=== PATIENT | female | born 1995 | race Caucasian/White ===

== ENCOUNTER → 2018-03-17 15:53 | Outpatient (CLI) | payer OTHER, MEDICAID, SELFPAY | PROVIDERS: Visit Provider Otolaryngology Otolaryngology/Facial Plastic Surgery | DX: J02.9 Acute pharyngitis, unspecified (principal) | CPT/HCPCS: 87070 ==

== ENCOUNTER 2018-06-28 15:25 | Emergency (ER) | payer OTHER, MEDICAID, SELFPAY ==
[2018-06-28 15:26] VITALS: BP 126/72; PULSE 100; RESP 18; TEMP 36.7; O2SAT 100; BMI 27.3
--- NOTE | 2018-06-28 15:45 | ED.VISSUMM ---
- ER Visit Summary Date of Service: 06/28/18 Chief Complaint: Abdominal pain History of Present Illness: The patient is a 23 F presenting with right-sided abdominal pain. She states this started 2 days ago. Pain has been intermittent. She has nausea with no vomiting. She has diarrhea. She has dysuria with no hematuria or urinary frequency. She has had subjective fevers. She denies possibility of . She went to urgent care today and was sent to the ED for further evaluation. Physical Examination: Vitals are stable. Patient is afebrile. Alert no acute distress. HEENT exam is unremarkable. Neck is supple. Lungs are clear and equal bilaterally. Heart is regular rate and rhythm. Abdomen is soft mild diffuse tenderness with no rebound or guarding Extremities are unremarkable. Skin is warm and dry. No focal neurologic deficit. Remainder of exam is unremarkable. Emergency Department Course and Treatment: CBC, chemistries unremarkable. Total bili is 1.3. HCG negative. On repeat exam, she has tenderness now more in the right lower quadrant. No guarding or rebound. CT abdomen pelvis is obtained and shows right adnexal cyst. IUD. Small amount of free fluid. Otherwise no acute disease. Urinalysis shows over 100 white blood cells, 10-25 red blood cells. On reevaluation, patient is now resting comfortably. She is given Macrobid and a prescription. She is advised to follow-up with her primary care physician. Advised return to ED for worsening complaints. Disposition: Discharge home Impression: Right ovarian cyst, UTI This note was generated with Shah[employer] P[employer], Broker dictation software. It may contain incorrect words, spelling, and punctuation that were not noted in review of the chart prior to signing ED Disposition - Plan for ED Patient: Chief Complaint: Abd Pain Referrals: Jean-Claude Paredes MD [Primary Care Provider] -
[2018-06-28 16:27] LABS: Absolute Lymphocyte Count 1.98 X10^3/ul (0.83-4.51); Absolute Neutrophil Count 5.8 X10^3/uL (2.0-7.7); Basophil# 0.01 X10^3/uL; Basophil% 0.1 % (0-1); Eosinophils% 1.2 % (0-5); Hematocrit 43.5 % (37-47); Hemoglobin 14.3 g/dl (12.0-15.0); Lymphocyte # 1.98 X10^3/ul (4.0); Lymphocyte % 22.8 % (19-41); Mean Corp Hgb Conc 32.9 g/gl (32-36); Mean Corpuscular Hgb 27.7 pg (27.0-32.0); Mean Corpuscular Volume 84.3 fL (81-99); Mean Platelet Vol. 9.1 fl (6.2-12.0); Monocyte# 0.72 X10^3/uL; Monocyte% 8.3 % (0-10); Neutrophil # 5.84 X10^3/uL (2.7-7.7); Neutrophil % 67.4 % (47-70); Platelet Count 249 K/mm3 (150-450); RBC Distribution Width CV 13.6 % (11.6-14.6); Red Blood Count 5.16 M/mm3 (4.2-5.4); White Blood Count 8.7 K/mm3 (4.4-11.0)
[2018-06-28 16:29] LABS: POSITIVE COUNT NO; POSITIVE DIFFERENTIAL NO; POSITIVE MORPHOLOGY NO
[2018-06-28 16:41] LABS: AST(SGOT) 11 U/L (15-37); Alanine Aminotransfer ALT/SGPT 18 U/L (13-56); Albumin, Serum 3.9 g/dL (3.2-5.0); Alkaline Phosphatase 62 U/L (45-117); Anion Gap 5 (5-15); BUN 9 mg/dL (7-18); BUN/Creat Ratio 11.2 RATIO (10-20); Calcium,Total 8.9 mg/dL (8.5-10.1); Chloride 107 mmol/L (98-107); EST Glomerular Filtration Rate 96 mL/min (>60); Est Glom Filt Rate - Afr Amer 116 mL/min (>60); Estimated Creatinine Clearance 104.14 ml/min; Globulin 4.1 g/dL (2.2-4.2); Glucose 95 mg/dL (74-106); Potassium 3.6 mmol/L (3.5-5.1); Sodium Level 141 mmol/L (136-145)
[2018-06-28 16:49] LABS: Pregnancy, Serum, hCG Quali. NEGATIVE Negative (0-9 Nonpreg)
[2018-06-28 17:05] LABS: Mucous, Urine 0 SEEN /hpf (<or=2+)
[2018-06-28 17:34] LABS: Color, Urine Yellow (Yellow); Glucose, Dipstick Normal (Normal); Ketone-Dipstick 5 mg/dl (Negative); Leukocyte Esterase-Dipstick 500 /ul (Negative); Nitrite-Dipstick Negative (Negative); Occult Blood-Urine 150 /ul (Negative); Protein-Dipstick 30 mg/dl (Negative); Specific Gravity, Urine 1.015 (1.002-1.030); Urine Bilirubin Dipstick Negative (Negative); Urine Clarity Cloudy (Clear); Urine Urobilinogen 1 mg/dl (Normal)
[2018-06-28 17:57] LABS: Bacteria 4+ /hpf (None Seen); Calcium Oxalate Crystals Ur 1+ /hpf (<or=2+); Red Blood Cells-Urine 10-25 SEEN /hpf (0-5); Squamous Epithelial Cells - UA 0-5 SEEN /hpf (5-10); White Blood Cells >100 SEEN /hpf (0-5)
[2018-06-28 17:58] LABS: Amorphous Sediment 2+
[2018-06-28 18:52] VITALS: BP 92/61; PULSE 69; RESP 17; O2SAT 98
--- NOTE | 2018-06-28 20:46 | ED.DEP ---
ED Disposition - Plan for ED Patient: Chief Complaint: Abd Pain Instructions: ED UTI Cystitis Female, ED Cyst Ovarian Prescriptions: Naproxen [Naprosyn] 500 mg PO BID PRN #20 tablet Nitrofurantoin Macrocrystals [Macrobid] 100 mg PO Q12 #14 capsule Referrals: Jean-Claude Paredes MD [Primary Care Provider] -
[2018-06-28] MEDS: Nitrofurantoin Macrocrystals 100 MG Capsule PO (21:06)
[2018-06-28 21:12] VITALS: BP 110/70; PULSE 74; RESP 16; O2SAT 98
== END 2018-06-28 21:13 | disposition home or self-care (01) ==
PROVIDERS: Emergency Provider Emergency Medicine; Family Provider Family Medicine; PCP Family Medicine
DX: N83.201 Unspecified ovarian cyst, right side (principal); N39.0 Urinary tract infection, site not specified; Z97.5 Presence of (intrauterine) contraceptive device; Z72.0 Tobacco use
CPT/HCPCS: 74177; 80053; 81001; 84703; 85025; 99284; Q9967; A4216

== ENCOUNTER 2021-02-15 08:07 | Emergency (ER) | payer OTHER, SELFPAY ==
[2021-02-15 08:08] VITALS: BP 103/24; PULSE 86; RESP 18; TEMP 35.6; O2SAT 100; BMI 23.5
--- NOTE | 2021-02-15 08:28 | US_ITS ---
STUDY: ABDOMINAL ULTRASOUND - RIGHT UPPER QUADRANT REASON FOR VISIT: Female, 26 years old PAIN TECHNIQUE: Ultrasound evaluation of the right upper quadrant was performed with real-time and static meyers-scale imaging. TECHNICAL QUALITY: Adequate. COMPARISON: None. FINDINGS: Liver: The liver measures 17.2 cm. There is normal echogenicity of the liver. The bile ducts are within normal limits. There is hepatic color flow. The direction of portal flow is hepatopetal. There is no demonstrated mass lesion. Gallbladder: Distended gallbladder. The gallbladder wall measures 3 mm. There is a negative sonographic Gatica''s sign. There is no pericholecystic fluid. There is a solitary echogenic gallstone within the gallbladder, along with echogenic sludge. Common Bile Duct (C.B.D.): The common bile duct measures 4 mm. Pancreas: Normal size of the head, body and tail of the pancreas. There is normal echogenicity of the pancreas. There is no demonstrated pancreatic mass or cyst. Right Kidney: Normal size of the right kidney. The right kidney measures 11.5 x 5.2 x 4.6 cm. Normal renal cortex. The right cortex measures 1.6 cm. There is no demonstrated renal mass or cyst. There is no right hydronephrosis. US/Gallbladder IMPRESSION: Cholelithiasis with gallbladder sludge. However, there is no wall thickening, pericholecystic fluid or extrahepatic biliary dilatation. Findings are equivocal for cholecystitis. Consider further evaluation with HIDA study Electronically Signed: Liam Arce MD at 10:06 EDT , Service support ,
[2021-02-15] MEDS: Morphine 4 MG/ML Syringe IV (08:51)
[2021-02-15] MEDS: 0.9% Normal Saline 1,000 ML 125 ML IV (08:51)
[2021-02-15 08:52] LABS: Absolute Lymphocyte Count 1.49 X10^3/uL (0.83-4.51); Absolute Neutrophil Count 6.8 X10^3/uL (2.0-7.7); Basophil# 0.02 X10^3/uL; Basophil% 0.2 % (0-1); Eosinophil# 0.07 X10^3/uL; Eosinophils% 0.8 % (0-5); Hematocrit 41.5 % (37-47); Hemoglobin 13.8 g/dL (12.0-15.0); Lymphocyte # 1.49 X10^3/ul (4.0); Lymphocyte % 16.3 % (19-41); Mean Corp Hgb Conc 33.3 g/dL (32-36); Mean Corpuscular Hgb 28.5 pg (27.0-32.0); Mean Corpuscular Volume 85.7 fL (81-99); Mean Platelet Vol. 8.6 fl (6.2-12.0); Monocyte% 7.7 % (0-10); NRBC Flagged by Analyzer 0 % (0-5); Neutrophil # 6.82 X10^3/uL (2.7-7.7); Neutrophil % 74.7 % (47-70); Platelet Count 257 K/mm3 (150-450); RBC Distribution Width CV 12.7 % (11.6-14.6); Red Blood Count 4.84 M/mm3 (4.2-5.4); White Blood Count 9.1 K/mm3 (4.4-11.0)
[2021-02-15] MEDS: Ketorolac 30 MG/ML Syringe IV (08:52)
[2021-02-15] MEDS: Ondansetron 4 MG/2 ML Vial IV (08:52)
[2021-02-15 09:08] LABS: Internal QC Validated? YES +Cl - CLEAR BKGD
[2021-02-15 09:10] LABS: ALB/GLOB Ratio 1.1 RATIO (0.9-2.4); AST(SGOT) 14 U/L (15-37); Alanine Aminotransfer ALT/SGPT 22 U/L (13-56); Albumin, Serum 3.9 g/dL (3.2-5.0); Alkaline Phosphatase 54 U/L (45-117); Anion Gap 4 (5-15); BUN 9 mg/dL (7-18); BUN/Creat Ratio 14.1 RATIO (10-20); Calcium,Total 8.4 mg/dL (8.5-10.1); Chloride 106 mmol/L (98-107); Creatinine, Serum 0.64 mg/dL (0.55-1.02); EST Glomerular Filtration Rate 122 mL/min (>60); Est Glom Filt Rate - Afr Amer 147 mL/min (>60); Estimated Creatinine Clearance 126.89 ml/min; Globulin 3.4 g/dL (2.2-4.2); Glucose 119 mg/dL (74-106); Lipase 85 U/L (73-393); Potassium 3.6 mmol/L (3.5-5.1); Pregnancy, Serum, hCG Quali. NEGATIVE Negative; Protein, Total 7.3 g/dL (6.4-8.2); Sodium Level 136 mmol/L (136-145)
[2021-02-15 09:22] LABS: Mucous, Urine 0 SEEN /hpf (<or=2+); Red Blood Cells-Urine 0 SEEN /hpf (0-5); White Blood Cells 0 SEEN /hpf (0-5)
[2021-02-15 09:23] LABS: Color, Urine Yellow (Yellow); Glucose, Dipstick Normal (Normal); Ketone-Dipstick 5 mg/dl (Negative); Leukocyte Esterase-Dipstick Negative /ul (Negative); Nitrite-Dipstick Negative (Negative); Occult Blood-Urine Negative /ul (Negative); Protein-Dipstick Negative (Negative); Urine Bilirubin Dipstick Negative (Negative); Urine Clarity Cloudy (Clear); Urine Urobilinogen Normal (Normal)
[2021-02-15 09:30] LABS: Amorphous Sediment 1+; Bacteria 1+ /hpf (None Seen); Squamous Epithelial Cells - UA 0-5 SEEN /hpf (5-10)
--- NOTE | 2021-02-15 09:39 | ED.DCSUM_ITS ---
History of Present Illness Chief Complaint: Abd Pain Informant: Patient - Abdominal Pain/Flank Pain Onset: - - overnight Context: Gradual Onset Timing: Continuous, Waxes and wanes Quality: Aching Location: - - across upper abd like a band, occ radiating into low back area Current Severity: Severe Maximum Severity: Severe Worsened by: Nothing Relieved by: Nothing - Nausea/Vomiting/Emesis GI Symptom: Nausea. Negative for: Vomiting - Diarrhea/Melena/Hematochezia GI Symptom: Negative for: Diarrhea, Melena, Hematochezia Associated Symptoms: Negative for: Dysuria, Frequency, Hematuria, Urgency LMP: unknown - has IUD and doesn't menstuate Narrative: Severe upper abdominal pain that she has had in the past on occasion but not nearly as severe as this, so this is the first time she has had it evaluated by a physician. Nauseated. She denies any pruritus, but does note that on occasion she has noticed that the whites of her eyes have turned yellow, but not today or last night. Last night, pain started between 30 and 60 minutes after eating [place] food. She has had no prior abdominal surgeries. She used to drink alcohol fairly regularly but not anymore. She denies any vomiting, fevers chills, hematochezia, or melena. Recent Illness/Hospitalization: No Past Medical History - Allergies and Home Meds Allergies/Adverse Reactions: Allergies No Known Allergies Allergy (Verified 02/15/21 08:09) Primary Care Physician: Jean-Claude Paredes MD [Primary Care Provider] - Past Medical History: None Smoking Status: Current every day smoker Alcohol: Occasional Drugs: None Review of Systems General: Denies: Chills, Fever, Sweats Eyes: Denies: Visual changes - bilaterally, Diplopia ENT: Denies: Rhinorrhea, Sore throat Cardiovascular: Denies: Chest pain, Palpitations Respiratory: Denies: Dyspnea, Cough, Dyspnea on exertion Gastrointestinal: Reports: Abdominal pain, Nausea. Denies: Vomiting, Diarrhea, Melena, Hematochezia Genitourinary: Denies: Dysuria, Hematuria, Frequency Musculoskeletal: Reports: Back pain. Denies: Neck pain, Swelling, Extremity Pain Skin: Denies: Rash, Wounds Neurological: Denies: Headache, Weakness, Numbness Physical Exam Vital Signs/Narrative: Vital Signs Temp Pulse Resp BP Pulse Ox 02/15/21 08:08 96.1 F L 86 18 103/24 L 100 Inital Vital Signs reviewed: Yes General: Well nourished, Well developed, Acute Distress - Pain Head: Normocephalic, Atraumatic Eyes: Perrl, EOMI ENT: Moist mucous membranes, No rhinorrhea Neck: Supple, Nontender Cardiovascular: Regular rate, Regular rhythm, No murmurs Respiratory: No distress, CTA bilaterally, Chest nontender Abdomen: Soft, Nondistended, Normal bowel sounds, No masses, Tender - Across upper abdomen, Guarding - Voluntary, Gatica's sign. Negative for: Rebound tenderness Back: Nontender, Normal Inspection, CVA tenderness - Diffusely tender, nonlateralizing Extremities: Nontender, No edema. Negative for: Calf Tenderness Skin: Normal color, No rash, No Trauma Neurological: Alert, Oriented x3, Cranial nerves II-XII grossly intact, Normal Strength, Normal Sensation, Normal Gait Psychological: Normal Mood, - - Anxious Diagnostic/Tx/Re-eval Impressions Gallbladder Ultrasound 02/15/21 08:28 IMPRESSION: Cholelithiasis with gallbladder sludge. However, there is no wall thickening, pericholecystic fluid or extrahepatic biliary dilatation. Findings are equivocal for cholecystitis. Consider further evaluation with HIDA study Electronically Signed: Liam Arce MD at 10:06 EDT , Service support , 02/15/21 08:28 Gallbladder [US] Stat Laboratory Results 02/15/21 02/15/21 02/15/21 08:27 08:45 08:45 WBC 9.1 RBC 4.84 Hgb 13.8 Hct 41.5 MCV 85.7 MCH 28.5 MCHC 33.3 RDW Std Deviation 40.0 RDW Coeff of Geetha 12.7 Plt Count 257 MPV 8.6 Immature Gran % (Auto) 0.300 Neut % (Auto) 74.7 H Lymph % (Auto) 16.3 L Kimball % (Auto) 7.7 Eos % (Auto) 0.8 Baso % (Auto) 0.2 Absolute Neuts (auto) 6.8 Absolute Lymphs (auto) 1.49 Nucleated RBC % 0 Sodium 136 Potassium 3.6 Chloride 106 Carbon Dioxide 26.0 Anion Gap 4 L BUN 9 Creatinine 0.64 Estim Creat Clear Calc 126.89 Est GFR (MDRD) Af Amer 147 Est GFR (MDRD) Non-Af 122 BUN/Creatinine Ratio 14.1 Glucose 119 H Calcium 8.4 L Total Bilirubin 1.10 H AST 14 L ALT 22 Alkaline Phosphatase 54 Total Protein 7.3 Albumin 3.9 Globulin 3.4 Albumin/Globulin Ratio 1.1 Lipase 85 Serum , Qual Urine Color Yellow Urine Clarity Cloudy Urine pH 9.0 Ur Specific Mcfarland 1.020 Urine Protein Negative Urine Glucose (UA) Normal Urine Ketones 5 H Urine Occult Blood Negative Urine Nitrite Negative Urine Bilirubin Negative Urine Urobilinogen Normal Ur Leukocyte Esterase Negative Urine RBC 0 SEEN Urine WBC 0 SEEN Ur Squamous Epith Cells 0-5 SEEN Amorphous Sediment 1+ Urine Bacteria 1+ Urine Mucus 0 SEEN 02/15/21 08:45 WBC RBC Hgb Hct MCV MCH MCHC RDW Std Deviation RDW Coeff of Geetha Plt Count MPV Immature Gran % (Auto) Neut % (Auto) Lymph % (Auto) Kimball % (Auto) Eos % (Auto) Baso % (Auto) Absolute Neuts (auto) Absolute Lymphs (auto) Nucleated RBC % Sodium Potassium Chloride Carbon Dioxide Anion Gap BUN Creatinine Estim Creat Clear Calc Est GFR (MDRD) Af Amer Est GFR (MDRD) Non-Af BUN/Creatinine Ratio Glucose Calcium Total Bilirubin AST ALT Alkaline Phosphatase Total Protein Albumin Globulin Albumin/Globulin Ratio Lipase Serum , Qual NEGATIVE Urine Color Urine Clarity Urine pH Ur Specific Mcfarland Urine Protein Urine Glucose (UA) Urine Ketones Urine Occult Blood Urine Nitrite Urine Bilirubin Urine Urobilinogen Ur Leukocyte Esterase Urine RBC Urine WBC Ur Squamous Epith Cells Amorphous Sediment Urine Bacteria Urine Mucus - Medical Decision Making Patient was treated with IV fluids, Zofran, Toradol, morphine, after which she is feeling much better. Results are as above, consistent with cholelithiasis and biliary colic. I reexamined her. She is only very mildly tender in the right upper quadrant with a negative Gatica sign. She is feeling well. She prefers to go home, I discussed with surgery Dr. Hernandez who was in agreement that it would be reasonable for her to go home, avoid fats in her diet, and use as needed pain medications, and return to the ER for intractable symptoms otherwise plan for outpatient surgery just after the weekend. Patient is comfortable with that plan. ED Disposition - Plan for ED Patient: Disposition: Home or Assisted Living Diagnosis: Biliary colic, Cholelithiasis Instructions: ED Gallstones with Biliary Colic Prescriptions: Hydrocodone Bitart/Apap 5-325 [Mcleod 5MG-325MG] 1 tablet PO Q4H PRN PRN 2 Days #8 tablet PRN Reason: Pain Transmission Status: Received by [facility] [facility] Referrals: Adri Hernandez MD [STAFF PHYSICIAN] - 02/19/21 (time TBD for outpatient surgery; the office will contact you.)
[2021-02-15 10:46] VITALS: BP 110/70; PULSE 65; RESP 20; O2SAT 98
== END 2021-02-15 11:09 | disposition home or self-care (01) ==
PROVIDERS: Emergency Provider Emergency Medicine; PCP Family Medicine
DX: K80.64 Calculus of gallbladder and bile duct with chronic cholecystitis without obstruction (principal); F17.200 Nicotine dependence, unspecified, uncomplicated; Z97.5 Presence of (intrauterine) contraceptive device
CPT/HCPCS: 76705; 80053; 81001; 83690; 84703; 85025; 99283; J7030; A4216; J2405

== ENCOUNTER 2021-02-19 11:51 | Day surgery (SDC) | payer OTHER, SELFPAY ==
--- NOTE | 2021-02-18 15:54 | HP.PCM_ITS ---
History and Physical Date of Admission: 02/19/21 Carline Gonzalez 1995 ? ? REFERRING PHYSICIAN: Damari Benites* ? CHIEF COMPLAINT: No chief complaint on file. ? HPI: The patient is a 26 year old female presents with RUQ abdominal pain on 02/15/[address] [facility] ED. ? Studies from [facility] - ? Gallbladder Ultrasound 02/15/21 IMPRESSION: Cholelithiasis with gallbladder sludge. However, there is no wall thickening, pericholecystic fluid or extrahepatic biliary dilatation. Findings are equivocal for cholecystitis. Consider further evaluation with HIDA study ? WBC 9.1 RBC 4.84 Hgb 13.8 Hct 41.5 MCV 85.7 MCH 28.5 MCHC 33.3 RDW Std Deviation 40.0 RDW Coeff of Geetha 12.7 Plt Count 257 MPV 8.6 Immature Gran % (Auto) 0.300 Neut % (Auto) 74.7 H Lymph % (Auto) 16.3 L Davidson % (Auto) 7.7 Eos % (Auto) 0.8 Baso % (Auto) 0.2 Absolute Neuts (auto) 6.8 Absolute Lymphs (auto) 1.49 Nucleated RBC % 0 Sodium 136 Potassium 3.6 Chloride 106 Carbon Dioxide 26.0 Anion Gap 4 L BUN 9 Creatinine 0.64 Estim Creat Clear Calc 126.89 Est GFR (MDRD) Af Amer 147 Est GFR (MDRD) Non-Af 122 BUN/Creatinine Ratio 14.1 Glucose 119 H Calcium 8.4 L Total Bilirubin 1.10 H AST 14 L ALT 22 Alkaline Phosphatase 54 Total Protein 7.3 Albumin 3.9 Globulin 3.4 Albumin/Globulin Ratio 1.1 Lipase 85 ? She states that she has minimal RUQ abdominal pain at present, but she has been watching her diet. Some nausea, no emesis. Denies fevers. Denies obstructive biliary symptoms such as jaundice/icterus. ? ? PAST MEDICAL HISTORY Diagnosis Date ? Anemia ? ? Asthma ? ? childhood ? PAST SURGICAL HISTORY Procedure Laterality Date ? DELIVERY ONLY ? 03/18/2017 ? PAST SURGICAL HISTORY OF ? ? ? wisdom teeth ? ? PAST INJURIES Denies history of fractures ? Current Outpatient Medications Medication Sig ? none ? ALLERGIES: Patient has no known allergies. ? PERSONAL HISTORY: Social History ? Tobacco Use ? Smoking status: Current Every Day Smoker ? ? Packs/day: 0.50 ? ? Years: 3.00 ? ? Pack years: 1.50 ? ? Types: Cigarettes ? Smokeless tobacco: Never Used Substance Use Topics ? Alcohol use: No ? Drug use: No ? FAMILY HISTORY Problem Relation Age of Onset ? Hypertension Mother ? ? Thyroid Mother ? ? Alcohol/Drug Father ? ? Asthma Maternal Grandmother ? ? Alcohol/Drug Paternal Grandfather ? ? ? REVIEW OF SYSTEMS: General - denies fevers, denies anorexia, denies weight loss Cardiovascular - denies chest pain, denies history of AR Pulmonary - had COVID in past, denies shortness of breath, denies coughing up blood Gastrointestinal - denies abdominal pain, denies hematemesis, denies blood in stools Neurological - denies seizures, denies chronic numbness/weakness of extremities, denies chronic headaches Genitourinary - denies burning with urination, denies blood in urine Hematological - denies spontaneous/prolonged bleeding Skin - denies nonhealing skin wounds Musculoskeletal - denies history of fractures Endocrine - denies diabetes, no thyroid problems Psychological ? denies hallucinations ? PHYSICAL EXAMINATION: Ht: 5'6 Wt: 66kg Vital signs in chart, reviewed and noted by me General ? WD/WN WF in no apparent distress, alert and oriented Head ? Normocephalic. EOM intact with sclera clear. Mouth with mucus membranes moist. Neck - supple with no jugular venous distention noted. Trachea is midline. Lungs ? clear to auscultation. Normal breath sounds. No rales/rhonchi/wheezing noted. Heart ? normal heart sounds. No rubs/clicks/murmurs noted. Regular rate. Abdomen ? soft and benign. Normal bowel sounds Extremities ? no pitting edema noted. Skin ? Normal skin integrity. Neurological ? non focal Psych ? calm and appropriate RADIOLOGIC STUDIES: As Noted ? ? IMPRESSION: symptomatic cholelithiasis ? PLAN: I have discussed the above with the patient. I have offered laparoscopic cholecystectomy, possible cholangiograms I have explained the procedure to the patient. I have counseled the patient as to the risks of the procedure, including but not limited to: infection, bleeding, injury to any blood vessels/nerves, scar tissue, injury to any intrabdominal organs, injury to bowel/bladder, injury to the common bile duct/biliary tree, bile leakage, intraabdominal abscess/bleeding, hernias at incisional sites, wound infections, complications of anesthesia, etc. ? the patient understands. ? The patient was offered a surgery/procedure. The provider and patient have discussed in detail the risk of exposure to and/or potential harm posed by the COVID-19 virus with having a surgery/procedure at this time versus the risk of? delaying the surgery/procedure. It is not possible to know either the risk of delaying the surgery or procedure or chance of getting an infection with perfect accuracy, but a joint decision was made between the patient and the provider ?to proceed at this time with the scheduled surgery/procedure. ? The patient wishes to proceed. I have answered all questions to the patient?s satisfaction and the patient has no further Questions. She requests post procedure pain medications to be liquid codeine, as she does not tolerate pills (prefered pharmacy [facility]) ? . Diagnoses: (K80.20) Calculus of gallbladder without cholecystitis without obstruction (primary encounter diagnosis)
--- NOTE | 2021-02-19 | GALL_PTH ---
PATIENT: HALEIGH GARZA [place] [facility] [id number] AGE/SX: 26 ROOM: RE02/19/[address]: Dr. Adri Hernandez MD : 1995 BED: DIS: 02/19/2021 SPEC #: [id number] RECD: 02/19/21 15:42 STATUS: FLORI REQ #: [id number] IVAN: 02/19/21 00:[address]: Adri Hernandez DEPT: SURGICAL PATHOLOGY RECD BY: Asher Fernando ENTERED: 02/20/21 07:32 SP TYPE: SAM RODRIGUEZ DR: Dr. Weston Paredes MD Tissues: Gallbladder, NOS Procedures: Surgery Specimen Level III HEADER OPERATION: Laparoscopic cholecystectomy with IOC PRE-OP DIAGNOSIS: Symptomatic cholelithiasis TISSUE SUBMITTED: Gallbladder MICROSCOPIC DIAGNOSIS Gallbladder, cholecystectomy: Cholesterolosis, chronic cholecystitis and cholelithiasis. Benign pericystic lymph node. AM:janice 02/21/2021 MICROSCOPIC DESCRIPTION Slides are reviewed. GROSS DESCRIPTION Received is one container labeled with the patient's name and designated gallbladder. The specimen consists of a gallbladder measuring 8 cm in length and up to 2.5 cm in diameter. The external surface is pink-sethi, smooth and glistening for the most part. Focally it is granular, hemorrhagic and contains cautery artifact. The gallbladder contains green-yellow mucoid bile and one ovoid, green stone measuring 1.5 x 1 x 1 cm. The mucosa is bile-stained and without any mass lesions. The gallbladder wall measures up to 0.3 cm in thickness. Also present close to cystic duct is an ovoid sethi nodule measuring 1 cm in greatest dimension. Dance Hall Host/Hostess sections from the gallbladder and the cystic duct including entire nodule close to cystic duct are submitted in one cassette. / SJ:janice 02/20/21 TC:3 CPT: 88384
--- NOTE | 2021-02-19 12:06 | EKG12_ITS ---
Test Reason : PRE OP Blood Pressure : / mmHG Vent. Rate : 094 BPM Atrial Rate : 094 BPM P-R Int : 122 ms QRS Dur : 078 ms QT Int : 346 ms P-R-T Axes : 057 084 047 degrees QTc Int : 432 ms Normal sinus rhythm Normal ECG Confirmed by FILIPE RECINOS, ISABEL ([id number]), science editor HALEIGH HINTON ([id number]) on 02/21/2021 11:32:28 AM Referred By: Adri Hernandez Confirmed By:ISABEL DENT MD
[2021-02-19 12:24] LABS: Internal QC Validated? YES +Cl - CLEAR BKGD; Pregnancy, Urine Negative Negative
[2021-02-19] MEDS: Bupiv/Epi 0.25% 30 ML Vial (12:37)
[2021-02-19 12:45] VITALS: BP 116/69; PULSE 86; RESP 16; TEMP 36.6; O2SAT 98; BMI 22.8
[2021-02-19] MEDS: Lactated Ringers 1,000 ML 100 ML IV ×2 (13:01→15:27)
[2021-02-19] MEDS: Cefazolin 2 GM in 0.9% Normal Saline 100 ML IV (13:28)
--- NOTE | 2021-02-19 14:05 | RAD_ITS ---
STUDY: INTRAOPERATIVE CHOLANGIOGRAM. REASON FOR EXAM: Female, 26 years old. NORI FLUOROSCOPY TIME (if supplied): ( 1 second ) minutes/seconds. One image was submitted. TECHNIQUE: An intraoperative cholangiogram was performed by the surgeon. Imaging was submitted. COMPARISON: None. FINDINGS: The intra and extra hepatic biliary ducts are unremarkable. There is free flow of contrast into the duodenum. RAD/Cholangiogram/ O R,Initial IMPRESSION: Unremarkable intraoperative cholangiogram. Electronically Signed: Michoacano Vaughan MD at 15:49 EDT , Service support ,
--- NOTE | 2021-02-19 14:33 | PCM.OPRPT ---
Report of Operation Date of Procedure: 02/19/21 Pre-Operative Diagnosis: cholelithiasis Post-Operative Diagnosis: same Surgery/Procedure Performed:: laparoscopic cholecystectomy with intraoperative cholangiograms Description of Surgical Findings:: normal cholangiograms, cholelithiasis, chronic cholecystitis rehab physician: Víctor Cabrera Anesthesiologist: Helena Galindo Specimen's removed: gallbladder and contents Estimated Blood Loss (mL): < 10 ml Fluids Replaced: 600 ml RL Description of Procedure: After informed consent was given, the patient was brought to the Operating Room. Appropriate time out protocol was followed. The patient was placed in the supine position. The patient was then placed under general endotracheal anesthesia by the anesthesia provider. The abdomen was then prepped with a sterile surgical skin preparation and sterile surgical drapes were placed. The infraumbilical skin fold was grasped with penetrating clamps and the skin and subcutaneous tissues were infiltrated with 0.25% marcaine with epinephrine. A skin incision was then made with a 15 blade scalpel. The anterior abdominal wall was elevated and a Veress needle was carefully inserted into the intraabdominal cavity. It was checked to be in the proper position with a normal saline drop test. A CO2 pneumoperitoneum was then created. Once this was achieved, then the Veress needle was removed and an 11mm trocar was placed in its stead. A 10mm laparoscope was then inserted into the trocar and careful attention was directed to the intraabdominal contents. There was no evidence of injury to any intraabdominal organs from insertion of the Veress needle or the trocar. Under direct visualization, a 5mm subxiphoid trocar and two lateral 5mm right subcostal trocars were placed. The skin and subcutaneous tissues at these sites were infiltrated with 0.25% marcaine with epinephrine prior to placement of these trocars. Attention was then directed to the right upper quadrant of the abdomen. Graspers were placed in the lateral trocars to grasp the distal aspect of the gallbladder and direct it cephalad and to grasp the gallbladder at Patiño?s pouch and direct it laterally. Dissection then began on the proximal gallbladder continuing down to the area of the triangle of Calot to bluntly dissect out the cystic duct. The neck of the gallbladder was identified and blunt dissection continued to dissect out a segment of the cystic duct. A clip was then placed on the neck of the gallbladder. A small ductotomy was then made. A Ranfac catheter was brought in through a separate skin incision and placed into the cystic duct. An intraoperative cholangiogram was performed under fluoroscopy. The xray revealed no lesions in the common bile duct, arborization of the biliary tree, and good flow into the duodenum. The Ranfac catheter was then removed and two clips were placed proximal to the ductotomy and the cystic duct was then transected. The cystic artery was visualized and bluntly isolated and then two clips were placed proximally and one clip distally and then it was transected between the proximal and distal clips. The gallbladder was then from the liver bed using electrocautery. Once from the liver bed, it was brought out via the umbilical port after being placed in an Endobag. It was then forwarded to pathology for analysis. The liver bed was carefully examined. There was no evidence of bile leakage or bleeding. The cystic duct stump and cystic artery stump had their clips intact and there was no evidence of bile leakage or bleeding. The remainder of the abdomen was grossly normal. The CO2 was released and all trocars removed intact. The periumbilical fascia was approximated with a [id number] 0 vicryl suture. All skin incision were closed with 4-0 monocryl in a subdermal fashion. Cavilol and Steristrips were used to reinforce the skin closure. Sterile dressings were applied to all wounds. Sponge, needle and instrument count was verified and correct at time of skin closure. The patient was extubated and brought to the Recovery Room in stable condition. - Complications none noted - Admit VTE Documentation VTE Present on Admission: Yes VTE Mechan Device Prophylaxis: SCD's
--- NOTE | 2021-02-19 14:47 | DCINST_ITS ---
Discharge Diet: No Restrictions - avoid carbonated beverages for a couple of days, drink plenty of fluids Discharge Activity: Return to Normal Activity, May not drive while taking narcotic pain medications. Lifting Restrictions: no lifting greater than 20 pounds for two weeks Call your doctor if your incision/area has: Continuous Slow Oozing, Foul Smelling Discharge Call your doctor if you observe: Fever of 101 or Higher Additional Instructions: Recommended pain control regimen - May take 600 mg ibuprofen (Motrin) and then in 3-4 hours, may take 650 mg acetaminophen (Tylenol), then in 3-4 hours may take 600 mg ibuprofen, then in 3- 4 hours may take 650 mg acetaminophen and so on for 2-3 days May take narcotic pain medication for pain that is not controlled by above and at night for comfort through the night Leave dressings in place May get dressings wet in shower - do not scrub in the area and pat dry Do not soak - no tub baths/swimming Avoid carbonated beverages for a couple of days as they may cause bloating which may cause you discomfort after abdominal surgery Please call for a follow up appointment at the office to be seen in 1-2 weeks for a date and time available at your convenience. Call . Allergies/Adverse Reactions: Allergies No Known Allergies Allergy (Verified 02/15/21 11:34) Medications to take at Discharge Acetaminophen/Codeine Liquid [Tylenol W/Cod Liq 300-30MG/12.5ML] 15 ml PO Q4H PRN PRN #20 udc 02/19/21 The following prescriptions were given: Acetaminophen/Codeine Liquid [Tylenol W/Cod Liq 300-30MG/12.5ML] 15 ml PO Q4H PRN PRN #20 udc PRN Reason: Pain Score 4-10 Transmission Status: Received by [facility] [facility] Primary Care Physician: Jean-Claude Paredes MD [Primary Care Provider] - Test Results: Test results from this visit will be discussed in further detail at your follow- up appointment, if applicable. Please Follow Up With: Adri Hernandez MD When: see above
[2021-02-19 14:50] VITALS: BP 108/69; BP 116/69; PULSE 72; RESP 16; TEMP 36.4; O2SAT 97
[2021-02-19 15:00] VITALS: BP 107/63; BP 116/69; PULSE 71; RESP 16; O2SAT 97
[2021-02-19 15:15] VITALS: BP 103/64; BP 116/69; PULSE 71; RESP 16; O2SAT 100
[2021-02-19 15:30] VITALS: BP 102/66; BP 116/69; PULSE 81; RESP 16; TEMP 36.6; O2SAT 100
[2021-02-19 15:50] VITALS: BP 116/69
== END 2021-02-19 16:10 | disposition home or self-care (01) ==
LOC: SDC 11:52 → AC 11:53
PROVIDERS: Anesthesiology; PCP Family Medicine; Referring Provider Surgery; Visit Provider Surgery
PROC: (CPT 47610; principal; 2021-02-19 13:45)
DX: K80.10 Calculus of gallbladder with chronic cholecystitis without obstruction (principal); F17.210 Nicotine dependence, cigarettes, uncomplicated; Z82.49 Family history of ischemic heart disease and other diseases of the circulatory system; D64.9 Anemia, unspecified
CPT/HCPCS: 47563; 74300; 76000; 81025; 85610; 85730; 88304; 93005; J7120; J2405

== ENCOUNTER 2024-05-13 14:58 | Emergency (ER) | payer MEDICAID, SELFPAY ==
[2024-05-13 14:59] VITALS: BP 123/84; PULSE 97; RESP 14; TEMP 36.6; O2SAT 97
[2024-05-13 15:01] VITALS: BMI 30.2
--- NOTE | 2024-05-13 15:27 | EDS_ITS ---
HPI <ARIANA Solis - Last Filed: 05/13/24 16:20> History of Present Illness Chief Complaint: Laceration Narrative Narrative: 29-year-old female states the reji was sitting in the driveway on a tire when turned off and when walking by it it struck her left connelly causing a laceration. It was bleeding heavily so she applied a tourniquet and the bleeding is stopped. She has no weakness numbness or tingling of lower extremity. Last tetanus unknown. PFSH <ARIANA Solis - Last Filed: 05/13/24 16:20> PFSH Home Medications ?Medication ?Instructions ?Recorded ?Last Taken ?Type acetaminophen 300 mg-codeine 30 15 ml PO Q4H PRN PRN Pain Score 02/19/21 Unknown Rx mg/12.5 mL (12.5 mL) oral solution 4-10 #20 UDCUPS Allergy/AdvReac Type Severity Reaction Status Date / Time No Known Allergies Allergy Verified 02/15/21 11:34 Surgical History (Updated 05/13/24 @ 15:08 by Zee Scott) History of cholecystectomy Social History Smoking Status: Current every day smoker tobacco type: cigarettes ROS <ARIANA Solis - Last Filed: 05/13/24 16:20> ROS ED ROS Narrative Neuro: Negative for motor/sensory dysfunction. Skin: Positive for laceration. Musc: Negative for joint pain, swelling. EXAM <ARIANA Solis - Last Filed: 05/13/24 16:20> Physical Exam Narrative Exam Narrative: CONST: Patient sitting in no acute distress. EYES: Normal inspection. SKIN: 4 cm V-shaped laceration to the level of the subcutaneous tissue left lower mid tibia. Right above this is a 0.5 cm linear laceration. No active bleeding, no foreign body. EXTREMITIES: Normal appearance, 5/5 strength in DF/PF, normal sensation, 2+ DP pulse. PSYCH: Normal affect. Const Vital Signs: 05/13/24 14:59 Temperature 98 F Temperature Source Temporal Pulse Rate 97 Respiratory Rate 14 Blood Pressure 123/84 H Blood Pressure Mean 97 Pulse Ox 97 Oxygen Delivery Method Room Air <Dr. Juan C Donnelly MD - Last Filed: 05/13/24 20:14> Physical Exam Const Vital Signs: 05/13/24 14:59 Temperature 98 F Temperature Source Temporal Pulse Rate 97 Respiratory Rate 14 Blood Pressure 123/84 H Blood Pressure Mean 97 Pulse Ox 97 Oxygen Delivery Method Room Air [facility] <ARIANA Solis - Last Filed: 05/13/24 16:20> [facility] Narrative Medical decision making narrative: Patient has a 4 cm V-shaped laceration on the left lower connelly from a chainsaw blade that was turned off. There is also a 5 cm laceration in the center of the V. There is no active bleeding and extremity is neurovascularly intact. I anesthetized the area and thoroughly irrigated and repaired with total of 6 simple interrupted sutures of 4-0 Ethilon. She tolerated the procedure well. She was given Tylenol and an updated tetanus vaccine and wound care discussed. She was discharged in stable condition I have personally performed a face to face assessment of the patient and have reviewed the MITCH Note. I performed a substantive portion of the visit including all aspects of the following. My ornelas findings include: History is remarkable for laceration anterior distalLeft leg. She walked by a chainsaw and sustained laceration. The chainsaw was not running. She denies paresthesia, anesthesia medics. Tetanus was 7 years ago. Exam is remarkable for a elliptical laceration distal anterior left leg. There is no neurovasc compromise. Medical Decision Making laceration will require repair. This was performed by the physician cardiology physician assistant under my supervision. Other additions or changes: [None] <Dr. Juan C Donnelly MD - Last Filed: 05/13/24 20:14> [facility] Narrative Medical decision making narrative: I have personally performed a face to face assessment of the patient and have reviewed the MITCH Note. I performed a substantive portion of the visit including all aspects of the following. My ornelas findings include: History is remarkable for laceration anterior distalLeft leg. She walked by a chainsaw and sustained laceration. The chainsaw was not running. She denies paresthesia, anesthesia medics. Tetanus was 7 years ago. Exam is remarkable for a elliptical laceration distal anterior left leg. There is no neurovasc compromise. Medical Decision Making laceration will require repair. This was performed by the physician cardiology physician assistant under my supervision. Other additions or changes: [None] Procedures <ARIANA Solis - Last Filed: 05/13/24 16:20> Lacerations left connelly: Length: 1.57 in Depth: Sub Q Shape: V shape Prep: Sterile Conditions and Shure-Clens Laceration repair: Irrigated and Lidocaine with epi Irrigated (ml): 100 Number of Sutures/[place]: 6 Suture Information: Ethilon and 4-0 Discharge Plan Triage Chief Complaint: Laceration ED Midlevel Provider: Bertha Myers ED Provider: Juan C Donnelly Dx/Rx/DC Orders Clinical Impression: Laceration of left leg Instructions: ED Laceration Extremity Prescriptions: No Action acetaminophen-codeine 12.5 ML solution 15 ml PO Q4H PRN PRN (Reason: Pain Score 4-10) Qty: 20 0RF Primary Care Provider: Weston Paredes Referrals: Weston Paredes MD [Primary Care Provider] - Activity Restrictions/Additional Instructions: Keep clean and have stitches removed in 10 days. Return immediately if any signs of infection develop like redness, swelling, pus or fever. Print Language: [place] Disposition Disposition: Home, Self Care Discharge Date/Time: 05/13/24 16:29
[2024-05-13] MEDS: Diphth,Pertuss(Acell),Tet Vac 0.5 ML Vial IM (15:46)
[2024-05-13] MEDS: Lidocaine 1% /Epi 1:100 (20ml) 20 ML Vial INFILT (15:46)
[2024-05-13] MEDS: Acetaminophen 500 MG Tablet 1000 MG PO (15:47)
== END 2024-05-13 16:29 | disposition home or self-care (01) ==
PROVIDERS: Emergency Provider Emergency Medicine; PCP Family Medicine; Visit Provider Emergency Medicine
DX: S81.812A Laceration without foreign body, left lower leg, initial encounter (principal); F17.210 Nicotine dependence, cigarettes, uncomplicated; W29.3XXA Contact with powered garden and outdoor hand tools and machinery, initial encounter; Z23 Encounter for immunization
CPT/HCPCS: 12002; 90471; 90715; 99282